=== PATIENT | male | born 1975 | race Caucasian/White ===

== ENCOUNTER 2019-07-25 05:08 | Emergency (ER) | payer SELFPAY ==
[~2019-07-25] VITALS: Ht 177.8 cm; Wt 92.0 kg
[2019-07-25] MEDS ORDERED: ACETAMINOPHEN 325MG TABLET PO STA (06:59)
[2019-07-25 07:30] LABS: CHLORIDE 105 mEq/L (98-107)
[2019-07-25 07:33] LABS: BASOPHILS % 1.3 % (0.0-2.0); EOSINOPHILS % 2.9 % (0.0-5.0); HEMATOCRIT. 44.9 % (42.0-52.0); HEMOGLOBIN. 15.7 g/dL (14.0-18.0); LYMPHOCYTES % 35.4 % (20.0-50.0); MEAN CORPUSCULAR HEMOGLOBIN 31.9 pg (28.0-32.0); MEAN PLATELET VOLUME 7.7 fl (7.4-10.4); MONOCYTES % 7.7 % (2.0-8.0); NEUTROPHILS % 52.7 % (40.0-76.0); PLATELET 310 x1000/uL (130-400); RED BLOOD CELL COUNT 4.93 mill/uL (4.7-6.1); RED CELL DISTRIBUTION WIDTH 12.9 % (11.6-14.6)
[2019-07-25 08:15] VITALS: BP 160/95
== END 2019-07-25 09:30 | disposition home or self-care (01) ==
LOC: ER 05:08
DX: R51 Headache (principal); L03.811 Cellulitis of head [any part, except face]; F15.10 Other stimulant abuse, uncomplicated; F12.10 Cannabis abuse, uncomplicated; F17.210 Nicotine dependence, cigarettes, uncomplicated
CPT/HCPCS: 36415; 80048; 85025; 99283

== ENCOUNTER 2019-11-12 00:17 | Emergency (ER) | payer MEDICAID ==
[~2019-11-12] VITALS: Ht 167.6 cm; Wt 95.0 kg
[2019-11-12] MEDS ORDERED: ACETAMINOPHEN 325MG TABLET PO ONE (00:45)
[2019-11-12 02:00] VITALS: BP 169/82
== END 2019-11-12 02:01 | disposition home or self-care (01) ==
LOC: ER 00:17
DX: M25.512 Pain in left shoulder (principal); R03.0 Elevated blood-pressure reading, without diagnosis of hypertension; Z87.828 Personal history of other (healed) physical injury and trauma
CPT/HCPCS: 71045; 99283